=== PATIENT | female | born 1970 | race Native Hawaiian/Other Pacific Islander ===

== ENCOUNTER 2017-03-14 10:22 | Outpatient (CLI) | payer BC ==
[2017-03-14 10:32] LABS: PLATELET COUNT 310 K/uL (152-353)
== END 2017-03-14 20:00 | disposition home or self-care (01) ==
LOC: LABW 10:22
PROVIDERS: Internal Medicine Rheumatology
DX: M05.79 Rheumatoid arthritis with rheumatoid factor of multiple sites without organ or systems involvement (principal)
CPT/HCPCS: 36415; 85027; 86140

== ENCOUNTER 2017-04-28 10:31 | Outpatient (CLI) | payer BC ==
[2017-04-28 10:42] LABS: PLATELET COUNT 287 K/uL (152-353)
[2017-04-28 10:56] LABS: POTASSIUM 3.9 mmol/L (3.6-5.2); SODIUM 138 mmol/L (136-145)
== END 2017-04-28 19:40 | disposition home or self-care (01) ==
LOC: LABW 10:31
PROVIDERS: Internal Medicine Rheumatology
DX: M05.79 Rheumatoid arthritis with rheumatoid factor of multiple sites without organ or systems involvement (principal); Z79.899 Other long term (current) drug therapy; Z51.81 Encounter for therapeutic drug level monitoring
CPT/HCPCS: 36415; 80053; 85027; 85651; 86140

== ENCOUNTER 2017-09-12 21:01 | Emergency (ER) | payer BC ==
[~2017-09-12] VITALS: Ht 172.7 cm; Wt 88.5 kg
[2017-09-12 22:50] VITALS: BP 138/83; TEMP 98.2
== END 2017-09-12 22:53 | disposition home or self-care (01) ==
LOC: ED 21:01
DX: S00.83XA Contusion of other part of head, initial encounter (principal); W01.0XXA Fall on same level from slipping, tripping and stumbling without subsequent striking against object, initial encounter; Y92.098 Other place in other non-institutional residence as the place of occurrence of the external cause
CPT/HCPCS: 99283

== ENCOUNTER 2017-11-18 09:09 | Outpatient (CLI) | payer BC | END 2017-11-19 05:17 | disposition home or self-care (01) | LOC: MAMMO 09:09 | DX: Z12.31 Encounter for screening mammogram for malignant neoplasm of breast (principal); Z13.820 Encounter for screening for osteoporosis; M85.88 Other specified disorders of bone density and structure, other site ==

== ENCOUNTER 2017-12-29 16:10 | Outpatient (CLI) | payer BC | END 2017-12-29 17:10 | disposition home or self-care (01) | LOC: RAD 16:10 | DX: Z79.899 Other long term (current) drug therapy (principal); Z51.81 Encounter for therapeutic drug level monitoring ==

== ENCOUNTER 2018-05-19 09:42 | Outpatient (CLI) | payer BC | END 2018-05-19 19:09 | disposition home or self-care (01) | LOC: RAD 09:42 | DX: M05.79 Rheumatoid arthritis with rheumatoid factor of multiple sites without organ or systems involvement (principal) ==

== ENCOUNTER 2018-10-09 12:37 | Outpatient (CLI) | payer BC | END 2018-10-09 22:32 | disposition home or self-care (01) | LOC: LABW 12:37 | DX: M05.79 Rheumatoid arthritis with rheumatoid factor of multiple sites without organ or systems involvement (principal); Z79.899 Other long term (current) drug therapy | CPT/HCPCS: 36415; 86480 ==

== ENCOUNTER 2019-01-26 09:01 | Outpatient (CLI) | payer BC | END 2019-01-26 23:59 | disposition home or self-care (01) | LOC: MAMMO 09:01 | DX: Z12.31 Encounter for screening mammogram for malignant neoplasm of breast (principal) ==

== ENCOUNTER 2019-06-29 09:36 | Outpatient (CLI) | payer BC ==
[2019-06-29 11:07] LABS: PLATELET COUNT 349 K/uL (152-353)
[2019-06-29 11:44] LABS: POTASSIUM 4.8 mmol/L (3.6-5.2)
== END 2019-06-29 23:59 | disposition home or self-care (01) ==
LOC: LABW 09:36
PROVIDERS: Nurse Practitioner Family
DX: G64 Other disorders of peripheral nervous system (principal); M05.79 Rheumatoid arthritis with rheumatoid factor of multiple sites without organ or systems involvement; Z68.31 Body mass index [BMI] 31.0-31.9, adult; Z79.899 Other long term (current) drug therapy
CPT/HCPCS: 36415; 80053; 85027; 85651; 86140

== ENCOUNTER 2021-04-17 10:03 | Outpatient (CLI) | payer BC | END 2021-04-17 20:01 | disposition home or self-care (01) | LOC: MAMMO 10:03 | PROVIDERS: ATTEND Obstetrics & Gynecology | DX: Z12.31 Encounter for screening mammogram for malignant neoplasm of breast (principal) ==

== ENCOUNTER 2021-06-12 09:44 | Outpatient (CLI) | payer BC | END 2021-06-12 22:36 | disposition home or self-care (01) | LOC: RAD 09:44 | PROVIDERS: ATTEND Nurse Practitioner Family | DX: G64 Other disorders of peripheral nervous system (principal); M05.79 Rheumatoid arthritis with rheumatoid factor of multiple sites without organ or systems involvement; M54.5 Low back pain; Z79.899 Other long term (current) drug therapy ==

== ENCOUNTER 2021-10-02 09:38 | Outpatient (CLI) | payer BC | END 2021-10-02 20:15 | disposition home or self-care (01) | LOC: RAD 09:38 | PROVIDERS: ATTEND Nurse Practitioner Family | DX: M05.79 Rheumatoid arthritis with rheumatoid factor of multiple sites without organ or systems involvement (principal); M85.89 Other specified disorders of bone density and structure, multiple sites; Z79.899 Other long term (current) drug therapy ==

== ENCOUNTER 2022-05-07 08:54 | Outpatient (CLI) | payer BC | END 2022-05-07 19:20 | disposition home or self-care (01) | LOC: MAMMO 08:54 | PROVIDERS: ATTEND Obstetrics & Gynecology | DX: Z12.31 Encounter for screening mammogram for malignant neoplasm of breast (principal) ==

== ENCOUNTER 2022-07-30 09:32 | Outpatient (CLI) | payer BC | END 2022-07-30 22:08 | disposition home or self-care (01) | LOC: RAD 09:32 | PROVIDERS: ATTEND Nurse Practitioner Family | DX: E55.9 Vitamin D deficiency, unspecified (principal); M05.79 Rheumatoid arthritis with rheumatoid factor of multiple sites without organ or systems involvement; M62.838 Other muscle spasm; M85.89 Other specified disorders of bone density and structure, multiple sites; Z79.899 Other long term (current) drug therapy ==

== ENCOUNTER 2023-08-19 11:07 | Outpatient (CLI) | payer BC | END 2023-08-19 19:02 | disposition home or self-care (01) | LOC: RAD 11:07 | PROVIDERS: ATTEND Nurse Practitioner Family | DX: E55.9 Vitamin D deficiency, unspecified (principal); M05.79 Rheumatoid arthritis with rheumatoid factor of multiple sites without organ or systems involvement; M62.838 Other muscle spasm; M85.89 Other specified disorders of bone density and structure, multiple sites; Z79.631 Long term (current) use of antimetabolite agent ==